=== PATIENT | male | born 1945 | race Caucasian/White ===

== ENCOUNTER 2021-01-10 10:00 | Outpatient (RCR) | payer MEDICARE, OTHER, SELFPAY ==
--- NOTE | 2020-10-31 16:18 | HP.PTEVAL_ITS ---
Patient's Visit Information EDWARD WRIGHT is a 75 year old M referred to Physical Therapy by JORGE AGUILAR with a diagnosis of SPONDYLOISTHESIS,AT L5-S1,PARS DEFECT LUMBAR ,PAIN OF RIGHT SI. Date of Evaluation: 10/31/20 Physical Therapist: Darryl Cleary, PT, Cert MDT, OCS - Visit Plan Frequency: 2x /Week Duration: 4 Weeks Plan: PRECAUTION: LATEX ALLERGY,NO MODALTIES PROSTRATE CA. PT INTERVENTIONS WITH DLS ,POSTURAL EX'S ,LUMBAR FLEXION ,LE FKLEXABILITY AND STRENGTHENING HIP/GLUTS - Subjective This 75 y/o male presents to physical therapy with lumbar pain. Patient has had lumbar pain for several years and symptoms worsen in past Jun last 2019 after tripped fell . Patient eventually seen family DR who recommended pain management. Then seen orthopedic DR in [place], MRI showed spondylolisthesis L5,S1 . Pain located right lumbar occasional right posterior leg. Patient did cortisone which helped. Aggravating standing ,bending and lifting along with extended distances. Alleviated factors sitting and rest. Denies parathesia/t ingling. Bowel/bladder -. Coughing/sneezing -. No abnormal night pain. Patient sleeping okay at night. Patient symptoms affects QOL and function . Symptoms affects housework tasks and ADLS. Patint had prior PT. SOCIAL: . VOCATION: retired - Pain Left Back Pain Intensity (Out of 10): 3 Pain Intensity Range: 10 Comment: 8/10 at worst - Objective POSTURE: mild forward posture. PALAPTION: unremarkable. NEURO: intact ,occasional c/o parathesia LLE ,reflexes L3-4,L4-5,L5-S1 1/3. SYMMTRIES: align. FLEXABLITY: hams mild/mod tight. MMT: quads 4-/5 hams 4/5 right ,left 4/5,hip flexion 4-/5,ankle 4/5. LUMBAR ROM: flexion min loss, extension mod loss ,side glides min loss - Special Tests L/S Slump test left side: Negative L/S Slump test right side: Positive L/S Left Straight Leg Raise: Negative L/S Right Straight Leg Raise: Positive Lumbar Standing: Flexion - Mechanical Response: No effect Lumbar Standing: Flexion - Symptoms During Testing: Increases Lumbar Standing: Flexion - Symptoms After Testing: No worse Lumbar Standing: Extension - Mechanical Response: No effect Lumbar Standing: Extension - Symptoms During Testing: Increases Lumbar Standing: Extension - Symptoms After Testing: No worse Lumbar Standing: Right Side Glides - Mechanical Response: No effect Lumbar Standing: Right Side [place] - Symptoms During Testing: No effect Lumbar Standing: Right Side [place] - Symptoms After Testing: No effect Lumbar Standing: Left Side [place] - Mechanical Response: No effect Lumbar Standing: Left Side [place] - Symptoms During Testing: No effect Lumbar Standing: Left Side [place] - Symptoms After Testing: No effect Lumbar Lying: Flexion - Mechanical Response: No effect Lumbar Lying: Flexion - Symptoms During Testing: Decreases Lumbar Lying: Flexion - Symptoms After Testing: Better - Goals Goal 1:: I with HEP Goal Time Frame: 4-6 Weeks Goal 2:: Improve posture/body mechanics for ADL's Goal Time Frame: 4-6 Weeks Goal 3:: Patient to decrease lumbar pain right lumbar by 50% or > to improve function and QOL. Goal 4:: Patient to improve lumbar ROM for function of recoevery Goal Time Frame: 4-6 Weeks Goal 5:: Patient to improve back owestry score by 5 points or > to improve QOL and function. Goal Time Frame: 4-6 Weeks - Rehabilitation Potential Physical Therapy Diagnosis: Patient has lumbar pain with decrease ROM and function of recovery, pain with test movements and core strength weakness and some weakness right leg thus benefit from skilled PT Rehabilitation Potential: Good - Anticipated Interventions Patient/Client Instruction: Educate patient on: Condition, Plan of Care For the Purpose of:: To decrease pain, To increase ROM, To improve muscle performance and motor function, To improve ability to perform ADL's, To increase tolerance to activity/condition/position, To improve performance and independence with ADL's, To improve ability of physical actions for home/community/work/leisure, To improve health of tissue, To decrease soft tissue restriction, To increase flexibility/ROM, To reduce risk of recurrence, To improve ability to perform tasks related to life management Therapeutic Exercise to Include: Strength training, Body mechanics, Postural t raining, Flexibilty training, Passive ROM, Dynamic Lumbar Stabilization For the Purpose of:: To decrease pain, To improve muscle performance and motor function, To improve ability to perform ADL's, To increase tolerance to activity/condition/position, To improve ability of physical actions for home/community/work/leisure, To improve health of tissue, To decrease soft tissu e restriction, To increase flexibility/ROM, To reduce risk of recurrence, To improve ability to perform tasks related to life management Thank you for the opportunity to evaluate your patient. For Medicare and Medicare HMO plans, please review the plan of care and approve it. It will need to be FAXED BACK to us at [phone] for Medicare purposes. For Medicare only, by signing this I certify the plan of care. Please let me know if there are questions or concerns regarding this plan of care. Physician Signature: Date:
--- NOTE | 2020-11-30 12:39 | HP.PTREVAL ---
JORGE AGUILAR, It has been my pleasure to treat EDWARD WRIGHT over the last 9 visits for SPONDYLOISTHESIS,AT L5-S1,PARS DEFECT LUMBAR ,PAIN OF RIGHT SI. Please see the progress note below for an update on the physical therapy plan of care! Subjective: Doing better ..less pain strengtyening ex's are helping Objective/Function: POSTURE: mild forward posture. GAIT: reciprocal pattern. MMT: quads/hams 4/5 ,hip flexion 4-/5,ankle 5/5. LUMBAR ROM: FLEXION MIN LOSS,EXTENSION MIN/MOD LOSS. FLEXABLITY: hams min loss Plan Plan: CONT WITH POC [id number]. PRECAUTION: LATEX ALLERGY,NO MODALTIES PROSTRATE CA. PT INTERVENTIONS WITH DLS ,POSTURAL EX'S ,LUMBAR FLEXION ,LE FKLEXABILITY AND STRENGTHENING HIP/GLUTS Goals Goal 1:: I with HEP Goal Time Frame: 4-6 Weeks Goal Progress: Goal Met Goal 2:: Improve posture/body mechanics for ADL's Goal Time Frame: 4-6 Weeks Goal Progress: Progressing Goal 3:: Patient to decrease lumbar pain right lumbar by 60% or > to improve function and QOL. Goal Time Frame: 4-6 Weeks Goal 4:: Patient to improve lumbar ROM for function of recovery Goal Time Frame: 4-6 Weeks Goal Progress: Progressing Goal 5:: Patient to improve back owestry score by 5 points or > to improve QOL and function. Goal Time Frame: 4-6 Weeks Goal Progress: Progressing Anticipated Interventions Patient/Client Instruction: Educate patient on: Condition, Plan of Care For the Purpose of:: To decrease pain, To increase ROM, To improve muscle performance and motor function, To improve ability to perform ADL's, To increase tolerance to activity/condition/position, To improve performance and independence with ADL's, To improve ability of physical actions for home/community/work/leisure, To improve health of tissue, To decrease soft tissue restriction, To increase flexibility/ROM, To reduce risk of recurrence, To improve ability to perform tasks related to life management Therapeutic Exercise to Include: Strength training, Body mechanics, Postural training, Flexibilty training, Passive ROM, Dynamic Lumbar Stabilization For the Purpose of:: To decrease pain, To improve muscle performance and motor function, To improve ability to perform ADL's, To increase tolerance to activity/condition/position, To improve ability of physical actions for home/community/work/leisure, To improve health of tissue, To decrease soft tissue restriction, To increase flexibility/ROM, To reduce risk of recurrence, To improve ability to perform tasks related to life management Please do not hesitate to contact me at [phone] by phone or if you have questions or concerns regarding this new plan of care! Sincerely, Darryl Cleary, PT, Cert MDT, OCS
--- NOTE | 2021-01-10 10:20 | HP.PTDCSUM ---
It has been my pleasure to treat EDWARD WRIGHT referred by JORGE AGUILAR, with the diagnosis of SPONDYLOISTHESIS,AT L5-S1,PARS DEFECT LUMBAR ,PAIN OF RIGHT SI for a total of 18 visit(s). Discharge Date: 01/10/21 Please see the following information for a summary of their discharge status. Subjective: DOING WELL .READY D/C Left Back Pain Intensity (Out of 10): 0 % Improvement: 75 Objective/Function: POSTURE:WFL. GAIT: RECIPROCAL PATTERN. MMT: QUADS/HAMS 4/5,HIP FLEXION 4/5,ANKLE 5/5. LUMBAR ROM: FLEXION WFL,EXTENSION MIN LOSS Goal 1:: I with HEP Goal Progress: Goal Met Goal 2:: Improve posture/body mechanics for ADL's Goal Progress: Goal Met Goal 3:: Patient to decrease lumbar pain right lumbar by 60% or > to improve function and QOL. Goal 4:: Patient to improve lumbar ROM for function of recovery Goal Progress: Goal Met Goal 5:: Patient to improve back owestry score by 5 points or > to improve QOL and function. Goal Progress: Goal Met Plan: D/C TO HEP AND GYM Discharge Comments: HEP If there are questions or concerns regarding this patient's physical therapy, please feel free to call me at [phone]. Thank you for the referral of this patient. Sincerely, Darryl Cleary, PT, Cert MDT, OCS Balance/Gait/Functional tests - Balance/Special Test Scores Oswestry Low Back Score: 5
== END 2021-01-10 19:00 | disposition home or self-care (01) ==
LOC: PT 10:00
PROVIDERS: PCP Family Medicine
DX: M53.3 Sacrococcygeal disorders, not elsewhere classified (principal); M43.17 Spondylolisthesis, lumbosacral region; M47.816 Spondylosis without myelopathy or radiculopathy, lumbar region
CPT/HCPCS: 97110; 97162

== ENCOUNTER → 2022-04-11 | Outpatient (CLI) | payer MEDICARE, OTHER, SELFPAY ==
[2022-04-11 12:37] LABS: International Normalized Ratio 1.3; Prothrombin Time (Protime)PT. 16.1 SECONDS (11.7-14.9)
== END | disposition home or self-care (01) ==
LOC: LABSPEC 11:41
PROVIDERS: PCP Family Medicine; Visit Provider Internal Medicine Hematology & Oncology
DX: I26.99 Other pulmonary embolism without acute cor pulmonale (principal)
CPT/HCPCS: 85610

== ENCOUNTER → 2022-04-14 | Outpatient (CLI) | payer MEDICARE, OTHER, SELFPAY ==
[2022-04-14 11:42] LABS: International Normalized Ratio 1.7; Prothrombin Time (Protime)PT. 19.9 SECONDS (11.7-14.9)
== END | disposition home or self-care (01) ==
PROVIDERS: PCP Family Medicine; Visit Provider Internal Medicine Hematology & Oncology
DX: I26.99 Other pulmonary embolism without acute cor pulmonale (principal)
CPT/HCPCS: 85610